=== PATIENT | female | born 1955 ===

== ENCOUNTER 2019-12-08 11:06 | Outpatient (CLI) | payer SELFPAY ==
[2019-12-08 10:41] LABS: HEMOGLOBIN A1C 6.1 % (4.5-6.2)
[2019-12-08 10:55] LABS: CHOL/HDL RATIO 2.61 (0.00-4.99)
== END 2019-12-08 23:59 | disposition home or self-care (01) ==
LOC: HW VAS 11:06
DX: Z13.6 Encounter for screening for cardiovascular disorders (principal)
CPT/HCPCS: 36415